=== PATIENT | female | born 1930 | race Two or more races ===

== ENCOUNTER 2016-09-15 13:15 | Emergency (ER) | payer MEDICARE, OTHER ==
[2016-09-15 13:31] VITALS: TEMP 98.2; BMI 31.4
--- NOTE | 2016-09-15 13:45 | PDOC ---
History of Present Illness - General History Source: Patient Exam Limitations: No Limitations - History of Present Illness Initial Comments: 09/15/16 14:30 The patient is an 86 year old female, with significant past medical history HLD , HTN, DM, Diabetic neuropathy, who presents today complaining of 4 days of a sore throat, productive cough with clear sputum, chills, and chest tightness. The patient explains that her symptoms began with a burning throat and intermittent cough. She attempted to visit an urgent care and was told that there would be no doctors until next week. Over the past 3 days the cough has become constant, irritating, and causing chest discomfort.. She has woken up with night sweats and has had chills. 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 She also notes a headache starting this morning. No lightheadedness, dizziness, chest pain. Allergies: none reported PCP- Dr. Hernandez <Joy Sequeira - Last Filed: 09/15/16 14:46> <Isaiah Ventura - Last Filed: 09/15/16 16:55> - General Chief Complaint: Chest Pain Stated Complaint: CHEST PAIN, SOB Time Seen by Provider: 09/15/16 13:44 Past History <Joy Sequeira - Last Filed: 09/15/16 14:46> - Past Medical History Cardiac Disorders: Yes (s/p ablation with loop recorder implantation to [facility]) Diabetes: Yes HTN: Yes Hypercholesterolemia: Yes - Psycho/Social/Smoking Cessation Hx Anxiety: No Suicidal Ideation: No Smoking History: Former smoker Have you smoked in the past 12 months: No If you are a former smoker, when did you quit?: 20yrs Information on smoking cessation initiated: No Hx Alcohol Use: No Drug/Substance Use Hx: No Substance Use Type: None Hx Substance Use Treatment: No <Isaiah Ventura - Last Filed: 09/15/16 16:55> - Past Medical History Allergies/Adverse Reactions: Allergies Allergy/AdvReac Type Severity Reaction Status Date / Time No Known Drug Allergies Allergy Verified 09/15/16 13:31 Home Medications: Ambulatory Orders Atorvastatin Ca [Lipitor] 10 mg PO HS 11/11/14 Glipizide Xl [Glucotrol Xl -] 2.5 mg PO DAILY 11/11/14 Losartan/Hydrochlorothiazide [Losartan-Hctz 50-12.5 mg Tab] 1 each PO DAILY Gabapentin [Neurontin] 100 mg PO BID 09/07/15 Meclizine HCl 25 mg PO DAILY 12/02/15 Hydrocortisone [Proctosol-Hc] 28.35 gm RC HS #0 cream..g. 12/03/15 Montelukast Na [Singulair -] 10 mg PO HS 12/03/15 Tramadol HCl/Acetaminophen [Tramadol-Acetaminophn 37.5-325] 1 each PO BID Levofloxacin [Levaquin] 750 mg PO DAILY #13 tablet 09/15/16 Ondansetron [Zofran *Odt*] 8 mg SL TID #30 od.tablet 09/15/16 Promethazine/Phenyleph/Codeine [Phenergan VC+Codeine Syrup] 5 ml PO TID #150 ml MDD 15 09/15/16 Review of Systems - Review of Systems Able to Perform ROS?: Yes Comments:: 09/15/16 14:31 GENERAL/CONSTITUTIONAL: +chills, night sweats. No fever. No weakness. HEAD, EYES, EARS, NOSE AND THROAT:+sore throat, No change in vision. No ear pain or discharge. CARDIOVASCULAR: No chest pain or shortness of breath. RESPIRATORY: +productive cough, chest tightness. No wheezing, or hemoptysis. GASTROINTESTINAL: No nausea, vomiting, diarrhea or constipation. GENITOURINARY: No dysuria, frequency, or change in urination. MUSCULOSKELETAL: No joint or muscle swelling or pain. No neck or back pain. SKIN: No rash NEUROLOGIC: +headache. No vertigo, loss of consciousness, or change in strength/ sensation. ENDOCRINE: No increased thirst. No abnormal weight change. HEMATOLOGIC/LYMPHATIC: No anemia, easy bleeding, or history of blood clots. ALLERGIC/IMMUNOLOGIC: No hives or skin allergy. <Joy Sequeira - Last Filed: 09/15/16 14:46> *Physical Exam - Vital Signs Last Vital Signs Temp Pulse Resp BP Pulse Ox 98.2 F 87 16 115/67 100 09/15/16 13:22 09/15/16 13:22 09/15/16 13:22 09/15/16 13:22 09/15/16 13:22 - Physical Exam Comments: 09/15/16 14:31 GENERAL: Awake, alert, and fully oriented, in no acute distress HEAD: No signs of trauma EYES: PERRLA, EOMI, sclera anicteric, conjunctiva clear ENT: Auricles normal inspection, hearing grossly normal, nares patent, oropharynx clear without exudates. Moist mucosa NECK: Normal ROM, supple, no lymphadenopathy, JVD, or masses LUNGS: +scattered rhonchi throughout all lung olsen. Hyperresonance of the left lung. No wheezes, and no crackles HEART: Regular rate and rhythm, normal S1 and S2, no murmurs, rubs or gallops ABDOMEN: Soft, nontender, normoactive bowel sounds. No guarding, no rebound. No masses EXTREMITIES: Normal range of motion, no edema. No clubbing or cyanosis. No cords, erythema, or tenderness NEUROLOGICAL: Cranial nerves II through XII grossly intact. Normal speech, normal gait SKIN: Warm, Dry, normal turgor, no rashes or lesions noted. <Joy Sequeira - Last Filed: 09/15/16 14:46> - Vital Signs Last Vital Signs Temp Pulse Resp BP Pulse Ox 98.2 F 87 16 115/67 100 09/15/16 13:22 09/15/16 13:22 09/15/16 13:22 09/15/16 13:22 09/15/16 13:22 <Isaiah Ventura - Last Filed: 09/15/16 16:55> ED Treatment Course - RADIOLOGY Radiograph Interpretation: 09/15/16 14:46 Chest X-ray As reported by Dr. José Miguel Conley Impression: No acute pathology. No significant change since 09/19/15 <Joy Sequeira - Last Filed: 09/15/16 14:46> - LABORATORY CBC & Chemistry Diagram: 09/15/16 15:10 09/15/16 15:10 <Isaiah Ventura - Last Filed: 09/15/16 16:55> *DC/Admit/Observation/Transfer - Attestations Scribe Attestion: 09/15/16 14:31 Documentation prepared by NERIS Paniagua, acting as medical care manager for Isaiah Ventura DO <Joy Sequeira - Last Filed: 09/15/16 14:46> - Discharge Dispostion Admit: No - Attestations Physician Attestion: 09/15/16 13:45 <Isaiah Ventura - Last Filed: 09/15/16 16:55> Diagnosis at time of Disposition: Bronchitis, Sinusitis - Discharge Dispostion Disposition: HOME Condition at time of disposition: Good - Prescriptions Prescriptions: Levofloxacin [Levaquin] 750 mg PO DAILY #13 tablet Promethazine/Phenyleph/Codeine [Phenergan VC+Codeine Syrup] 5 ml PO TID #150 ml MDD 15 Ondansetron [Zofran *Odt*] 8 mg SL TID #30 od.tablet - Referrals Referrals: Cayla Butt MD [Staff Physician] - - Patient Instructions Printed Discharge Instructions: DI for Sinusitis, DI for Acute Bronchitis Additional Instructions: Mrs Mckenzie- You have Sinusitis and Bronchitis. Antibiotic is Levaquin which is once a day for 14 days- start tomorrow Phenergan with Codine is cough syrup. One teaspoon three times a day, only if you need it. Zofran is in case the other meds upset your stomach. Dissolve it on your tongue three times a day, only if you need it. Return to us if worse See your doctor in a few days Hope you feel better soon- Best- Dr. Isaiah Ventura
[2016-09-15] MEDS ORDERED: ALBUTEROL SO4 2.5/IPRATROPIUM 0.5 INH SOL 3 ML VIAL.NEB. NEB ONE ×2 (14:24→14:48)
[2016-09-15] MEDS ORDERED: methylPREDNISolone NA SUCC 125 MG/2 ML VIAL IVPB ONE (14:26)
[2016-09-15] MEDS ORDERED: methylPREDNISolone NA SUCC 125 MG/2 ML VIAL ONE (14:50)
[2016-09-15 15:25] LABS: BASOPHIL 0.9 % (0-2.0); EOSINOPHIL 2.6 % (0-4.5); MCH 30.3 pg (25.7-33.7); MCHC 32.4 g/dl (32.0-36.0); MEAN CELL VOLUME 93.5 fl (80-96); MEAN PLT VOLUME 8.2 fl (7.5-11.1); NEUTROPHILS 68.9 % (42.8-82.8); PLATELET COUNT 203 K/MM3 (134-434); WHITE BLOOD COUNT 8.8 K/mm3 (4.0-10.0)
[2016-09-15 15:38] LABS: ANION GAP 4 (8-16); BILIRUBIN,TOTAL 0.5 mg/dL (0.2-1.0); CALCIUM 8.9 mg/dL (8.5-10.1); CO2 35 mmol/L (21-32); CREATININE 1.1 mg/dL (0.55-1.02); GLUCOSE,RANDOM 116 mg/dL (74-106); SGOT/AST 20 U/L (15-37); SGPT/ALT 32 U/L (12-78); TOT PROT 6.6 g/dl (6.4-8.2)
[2016-09-15 15:40] LABS: ALK PHOS 67 U/L (45-117); TROPONIN I < 0.02 ng/ml (0.00-0.05)
--- NOTE | 2016-09-15 15:49 | EKG ---
Test Reason : Blood Pressure : / mmHG Vent. Rate : 068 BPM Atrial Rate : 068 BPM P-R Int : 222 ms QRS Dur : 066 ms QT Int : 372 ms P-R-T Axes : 030 -02 021 degrees QTc Int : 395 ms SINUS RHYTHM WITH 1ST DEGREE A-V BLOCK NONSPECIFIC T WAVE ABNORMALITY ABNORMAL ECG WHEN COMPARED WITH ECG OF 19-SEP-2015 18:12, NO SIGNIFICANT CHANGE WAS FOUND Confirmed by OMER MULLINS MD ([id number]) on 09/15/2016 3:49:05 PM Referred By: Confirmed By:OMER MULLINS MD
[2016-09-15 16:33] LABS: INR 1.08 (0.82-1.09); PROTHROMBIN TIME (PATIENT) 11.9 SEC (9.98-11.88)
[2016-09-15] MEDS ORDERED: LEVOFLOXACIN 750 MG IVPB 150 ML IVPB ONE ×2 (16:44→17:09)
[2016-09-15] MEDS ORDERED: ACETAMINOPHEN 325 MG TABLET (FP) ONE (17:17)
[2016-09-15] MEDS ORDERED: ACETAMINOPHEN 325 MG TABLET (FP) PO ONE (17:17)
[2016-09-15 18:40] VITALS: BP 116/54; PULSE 75
--- NOTE | 2016-09-16 12:45 | EKG ---
Test Reason : Blood Pressure : / mmHG Vent. Rate : 067 BPM Atrial Rate : 067 BPM P-R Int : 192 ms QRS Dur : 064 ms QT Int : 392 ms P-R-T Axes : 059 -09 003 degrees QTc Int : 414 ms POOR DATA QUALITY, INTERPRETATION MAY BE ADVERSELY AFFECTED NORMAL SINUS RHYTHM MODERATE VOLTAGE CRITERIA FOR LVH, MAY BE NORMAL VARIANT NONSPECIFIC T WAVE ABNORMALITY ABNORMAL ECG WHEN COMPARED WITH ECG OF 15-SEP-2016 13:35, [place] INTERVAL HAS DECREASED Confirmed by MARY IQBAL, YUNIEL ([id number]) on 09/16/2016 12:45:22 PM Referred By: BLAKE Confirmed By:YUNIEL HERNANDEZ MD
== END 2016-09-15 18:40 | disposition home or self-care (01) ==
LOC: JER 13:15
PROC: 3E0F7GC Introduction of Other Therapeutic Substance into Respiratory Tract, Via Natural or Artificial Opening (ICD-10-PCS; principal; 2016-09-15)
PROC: 3E03329 Introduction of Other Anti-infective into Peripheral Vein, Percutaneous Approach (ICD-10-PCS; 2016-09-15)
PROC: 3E0333Z Introduction of Anti-inflammatory into Peripheral Vein, Percutaneous Approach (ICD-10-PCS; 2016-09-15)
DX: J20.9 Acute bronchitis, unspecified (principal); J01.90 Acute sinusitis, unspecified; I10 Essential (primary) hypertension; E78.00 Pure hypercholesterolemia, unspecified; E11.42 Type 2 diabetes mellitus with diabetic polyneuropathy; Z79.84 Long term (current) use of oral hypoglycemic drugs
CPT/HCPCS: 36415; 71010-TC; 80053; 82550; 83880; 84484; 85025; 85610; 93005; 93010; 99283-25

== ENCOUNTER 2017-10-31 10:06 | Emergency (ER) | payer MEDICARE, OTHER ==
[2017-10-31 10:21] VITALS: BMI 31.8
--- NOTE | 2017-10-31 10:22 | PDOC ---
Attending Attestation - Resident Resident Name: Nette Hitchcock - HPI HPI: 10/31/17 12:29 Pt presents to the ED complaining of a two week history of shortness of breath, accompanied by cough productive of whitish sputum. Denies fever, nausea and vomiting or chest pain. Seen by PMD for the same complaint, treated with antibiotic and breathing treatments, without relief. - Physicial Exam PE: 10/31/17 12:35 Agree with resident exam. Patient has mild conversational dyspnea. + diffuse wheezing on exam. Heart regular rate and rhythm, abdomen soft, non tender, non distended. - Medical Decision Making 10/31/17 12:38 Pt presents to the ED complaining of shortness of breath despite an outpatient course of antibiotics prescribed by her PMD. Wheezing and visibly short of breath on exam. No history of asthma or COPD. Differential includes PNA, bronchitis, CHF, unlikely PE or ACS. Will check labs, CXR, treat with bronchodilators and reassess. Likely admission to medicine for continued monitoring and management. 10/31/17 12:53
[2017-10-31] MEDS ORDERED: ALBUTEROL SO4 0.083% IH SOL 2.5 MG/3 ML VIAL.NEB. NEB ONE ×4 (11:13→14:12)
[2017-10-31 12:49] LABS: BASO % 0.5 % (0-2.0); EOS % 1.1 % (0-4.5); HEMATOCRIT 39.7 % (32.4-45.2); HEMOGLOBIN 12.9 GM/dL (10.7-15.3); LYMPH % 24.1 % (8-40); MCH 30.3 pg (25.7-33.7); MCHC 32.6 g/dl (32.0-36.0); MEAN PLT VOLUME 8.3 fl (7.5-11.1); MONO % 8.2 % (3.8-10.2); NEUT % 66.1 % (42.8-82.8); PLATELET COUNT 184 K/MM3 (134-434); RBC 4.27 M/mm3 (3.60-5.2); RDW 14.9 % (11.6-15.6); WHITE BLOOD COUNT 10.1 K/mm3 (4.0-10.0)
--- NOTE | 2017-10-31 13:17 | PDOC ---
History of Present Illness <Elizabeth Villra - Last Filed: 10/31/17 15:05> - General History Source: Patient, Information And Data Architect Analyst Used (Nurse Junior) - History of Present Illness Initial Comments: 10/31/17 13:12 HPI: Patient is an 87 yo female with PMH of HTN, HLD with "monitor on the heart", presenting to ED with complaints of cough and difficulty breathing. Symptoms first started 2 weeks ago when she developed a cold that progressed. Patient states that it is difficult for her to breathe and she is constantly coughing with clear mucus. She states that she coughs so hard that she becomes incontinent. She also noticed that her ankles were looking more swollen than usual. She denies chest pain, abdominal pain, headache, fever, chills, orthopnea. She saw her PCP on Wednesday and was given predisone and albuterol but she did not feel any better. *Patient spoke Gibraltarian only, her assigned nurse Nat was present to translate. Patient's daughter also translated. PMH: As per HPI. PSH: As per HPI. Meds: albuterol, symbicort, prednisone, tordol, losartan, gabapentin, glipizide , atorvastatin, montelukast, ASA Allergies: None Known PCP: Dr. Hernandez 10/31/17 13:21 10/31/17 13:21 10/31/17 14:30 10/31/17 15:35 10/31/17 15:35 10/31/17 16:14 <Nette Hitchcock - Last Filed: 10/31/17 19:04> - General Chief Complaint: Respiratory Stated Complaint: COUGH Time Seen by Provider: 10/31/17 10:21 Past History <Elizabeth Villar - Last Filed: 10/31/17 15:05> - Past Medical History Asthma: Yes Cardiac Disorders: Yes (s/p ablation with loop recorder implantation to [facility]) COPD: No Diabetes: Yes HTN: Yes Hypercholesterolemia: Yes - Suicide/Smoking/Psychosocial Hx Smoking History: Former smoker Have you smoked in the past 12 months: No If you are a former smoker, when did you quit?: 20yrs Information on smoking cessation initiated: No Hx Alcohol Use: No Drug/Substance Use Hx: No Substance Use Type: None Hx Substance Use Treatment: No <Nette Hitchcock - Last Filed: 10/31/17 19:04> - Past Medical History Allergies/Adverse Reactions: Allergies Allergy/AdvReac Type Severity Reaction Status Date / Time No Known Drug Allergies Allergy Verified 09/15/16 13:31 Home Medications: Ambulatory Orders Benzonatate [Tessalon Pearls -] 100 mg PO TID #21 capsule 10/31/17 Levofloxacin [Levaquin] 750 mg PO DAILY 5 Days #5 tablet 10/31/17 Review of Systems - Review of Systems Comments:: 10/31/17 13:21 ROS: Constitutional: No fevers, chills, fatigue, malaise HEENT: Congestion. No Rhinorrhea, visual changes, throat pain Cardiovascular: No chest pain, syncope, palpitations, lightheadedness Respiratory: Cough, SOB. No Hemoptysis, Gastrointestinal: No Abdominal pain, Nausea, Vomiting, Constipation, Diarrhea, Melena Genitourinary: No Dysuria, Frequency, Urgency, Hesitancy, Hematuria, Flank pain Musculoskeletal: No Myalgia, arthralgia Skin: No rashes, itching, bruising, pallor Neurologic: No Headache, Dizziness, Numbness, Weakness, or Tingling <Nette Hitchcock - Last Filed: 10/31/17 19:04> *Physical Exam - Vital Signs Last Vital Signs Temp Pulse Resp BP Pulse Ox 97.9 F 71 20 137/76 97 10/31/17 10:18 10/31/17 10:18 10/31/17 10:18 10/31/17 10:18 10/31/17 10:18 <Elizabeth Villar - Last Filed: 10/31/17 15:05> - Vital Signs Last Vital Signs Temp Pulse Resp BP Pulse Ox 97.9 F 71 20 137/76 97 10/31/17 10:18 10/31/17 10:18 10/31/17 10:18 10/31/17 10:18 10/31/17 10:18 - Physical Exam Comments: Physical Exam: General Appearance: Nourished. No Apparent Distress, had mask on face HEENT: EOMI, KARO. No Pharyngeal Erythema, Tonsillar Exudate, Tonsillar Erythema Neck: No Cervical Lymphadenopathy Respiratory/Chest: Inspiratory and expiratory wheezes Cardiovascular: Regular Rhythm, Regular Rate. No JVD, Murmur, Gallops, Rubs Gastrointestinal/Abdominal: Normal Bowel Sounds, Soft. No Guarding, Rebound, Tenderness Musculoskeletal: No CVA Tenderness Extremity: Bilateral pitting edema to mid calf. Normal Capillary Refill Integumentary: Normal Color, Dry, Warm Neurologic: spanish moss picker II-XII NML intact, Fully Oriented, Alert, Normal Mood/Affect, Normal Response 10/31/17 13:22 <Nette Hitchcock - Last Filed: 10/31/17 19:04> ED Treatment Course - LABORATORY CBC & Chemistry Diagram: 10/31/17 12:33 10/31/17 12:33 - ADDITIONAL ORDERS Additional order review: Laboratory Results 10/31/17 12:33 Sodium 146 H Potassium 4.4 Chloride 108 H Carbon Dioxide 34 H Anion Gap 4 L BUN 33 H Creatinine 1.0 Creat Clearance w eGFR 52.69 Random Glucose 69 L Calcium 8.5 Total Bilirubin 0.2 AST 28 ALT 25 Alkaline Phosphatase 68 B-Natriuretic Peptide 617.43 H Total Protein 6.7 Albumin 3.0 L 10/31/17 12:33 RBC 4.27 MCV 93.0 MCHC 32.6 RDW 14.9 MPV 8.3 Neutrophils % 66.1 Lymphocytes % 24.1 D Monocytes % 8.2 Eosinophils % 1.1 Basophils % 0.5 - Medications Given in the ED: ED Medications Discontinued Medications Generic Name Dose Route Start Last Admin Trade Name Nohemy PRN Reason Stop Dose Admin Albuterol Sulfate 1 amp 10/31/17 11:13 10/31/17 12:34 Ventolin 0.083% Nebulizer Soln - NEB 10/31/17 11:14 1 amp ONCE ONE Administration Albuterol Sulfate 1 amp 10/31/17 14:08 10/31/17 14:14 Ventolin 0.083% Nebulizer Soln - NEB 10/31/17 14:09 1 amp ONCE ONE Administration Levofloxacin 750 mg in 150 mls @ 100 mls/hr 10/31/17 11:13 10/31/17 12:34 Levaquin 750 Mg Premixed Ivpb - IVPB 10/31/17 12:42 100 mls/hr ONCE ONE Administration Protocol - Consult/PCP Time Called: 15:05 (paged MECHATRONICS TECHNOLOGIST Ramana Oscar) <Elizabeth Villar - Last Filed: 10/31/17 15:05> - LABORATORY CBC & Chemistry Diagram: 10/31/17 12:33 10/31/17 12:33 - ADDITIONAL ORDERS Additional order review: 10/31/17 12:33 RBC 4.27 MCV 93.0 MCHC 32.6 RDW 14.9 MPV 8.3 Neutrophils % 66.1 Lymphocytes % 24.1 D Monocytes % 8.2 Eosinophils % 1.1 Basophils % 0.5 10/31/17 13:23 ECG:NSR with 1st degree AV block 10/31/17 16:14 - RADIOLOGY Radiology Studies Ordered: Category Date Time Status CHEST PA & LAT [RAD] Stat Radiology 10/31/17 11:13 Ordered 10/31/17 16:15 CXR: clear lungs, no acute pathology - Medications Given in the ED: ED Medications Discontinued Medications Generic Name Dose Route Start Last Admin Trade Name Nohemy PRN Reason Stop Dose Admin Albuterol Sulfate 1 amp 10/31/17 11:13 10/31/17 12:34 Ventolin 0.083% Nebulizer Soln - NEB 10/31/17 11:14 1 amp ONCE ONE Administration Levofloxacin 750 mg in 150 mls @ 100 mls/hr 10/31/17 11:13 10/31/17 12:34 Levaquin 750 Mg Premixed Ivpb - IVPB 10/31/17 12:42 100 mls/hr ONCE ONE Administration Protocol <Nette Hitchcock - Last Filed: 10/31/17 19:04> Medical Decision Making - Medical Decision Making 10/31/17 16:15 Patient is a 87 year old female with PMH of HTN, HLD presents to ED with cough productive of clear sputum and shortness of breath. Patient had cold like symptoms for 2 weeks prior to presentation. She saw her PCP on Wednesday and was given prednisone and albuterol. She admits to cough, SOB, swelling of the legs, but denies chest pain, headache, abdominal pain, N/V/D, urinary symptoms. On physical exam, patient had inspiratory and expiratory wheezes, edema of legs up to the knees bilaterally. Initial ED vitals were wnl. CXR showed clear lungs with no acute pathology. CBC , CMP were wnl, troponin was negative. BNP was 617. Patient was given 2 treatments with nebulizer and reported being able to breathe much better. Upon reevaluation, patient still had expiratory wheezes. Dr. Hernandez was called and ANDI Oscar advised patient to make an appointment with Dr. Hernandez. Patient had alleviation of symptoms and vital signs were wnl. Patient was discharged home on Levaquin 750mg x5 days and Tessalon Perle 100mg #21. 10/31/17 18:58 10/31/17 18:59 10/31/17 19:01 <Nette Hitchcock - Last Filed: 10/31/17 19:04> *DC/Admit/Observation/Transfer <AureaElizabeth - Last Filed: 10/31/17 15:05> <Nette Hitchcock - Last Filed: 10/31/17 19:04> Diagnosis at time of Disposition: Lower respiratory infection, Cough - Discharge Dispostion Disposition: HOME Condition at time of disposition: Good - Prescriptions Prescriptions: Benzonatate [Tessalon Pearls -] 100 mg PO TID #21 capsule Levofloxacin [Levaquin] 750 mg PO DAILY 5 Days #5 tablet - Referrals Referrals: Ashlyn Hernandez MD [Primary Care Provider] - - Patient Instructions Printed Discharge Instructions: Cough, DI for Pneumonia -- Adult, DI for Acute Bronchitis Additional Instructions: You were seen today for Cough and difficulty breathing. We ordered a chest xray and blood tests to make sure you were not having any infection. The chest xray and blood work did not show an infection. We gave you antibiotics and breathing treatments in the emergency room. Your doctor gave you prednisone and albuterol , please continue to take those. I have given you a prescription for an antibiotic and a cough medicine, it was sent to [facility] on [facility]. Antibiotic- Levaquin 750mg take 1 tablet once a day for 5 days Cough medicine- Tessalon Perle- take 1 capsule three times a day Please schedule an appointment with Dr. Hernandez for Wednesday or Wednesday. If you start to develop fever, if your cough gets worse, if it becomes hard for you to breathe then please come back to the ED. Thank you - Post Discharge Activity
[2017-10-31 13:38] LABS: ANION GAP 4 (8-16); BILIRUBIN,TOTAL 0.2 mg/dL (0.2-1.0); BLOOD UREA NITROGEN 33 mg/dL (7-18); CALCIUM 8.5 mg/dL (8.5-10.1); CHLORIDE 108 mmol/L (98-107); CO2 34 mmol/L (21-32); GLUCOSE,RANDOM 69 mg/dL (74-106); SGPT/ALT 25 U/L (12-78); SODIUM 146 mmol/L (136-145); TOT PROT 6.7 g/dl (6.4-8.2)
[2017-10-31 13:40] LABS: ALK PHOS 68 U/L (45-117); N-TERMINAL BNP 617.43 pg/ml (5-450); POTASSIUM 4.4 mmol/L (3.5-5.1)
[2017-10-31 13:41] LABS: SGOT/AST 28 U/L (15-37)
[2017-10-31 16:50] VITALS: BP 129/69; PULSE 69; TEMP 98.7
--- NOTE | 2017-11-01 09:10 | EKG ---
Test Reason : Blood Pressure : / mmHG Vent. Rate : 060 BPM Atrial Rate : 060 BPM P-R Int : 318 ms QRS Dur : 074 ms QT Int : 410 ms P-R-T Axes : 069 -06 025 degrees QTc Int : 410 ms SINUS RHYTHM WITH 1ST DEGREE A-V BLOCK MINIMAL VOLTAGE CRITERIA FOR LVH, MAY BE NORMAL VARIANT NONSPECIFIC T WAVE ABNORMALITY BORDERLINE ECG WHEN COMPARED WITH ECG OF 15-SEP-2016 15:26, [place] INTERVAL HAS INCREASED Confirmed by UMBERTO KELLOGG MD ([id number]) on 11/01/2017 9:10:25 AM Referred By: Confirmed By:UMBERTO KELLOGG MD
== END 2017-10-31 16:53 | disposition home or self-care (01) ==
LOC: JER 10:06
PROC: 3E0F7GC Introduction of Other Therapeutic Substance into Respiratory Tract, Via Natural or Artificial Opening (ICD-10-PCS; principal; 2017-10-31)
PROC: 3E03329 Introduction of Other Anti-infective into Peripheral Vein, Percutaneous Approach (ICD-10-PCS; 2017-10-31)
DX: J22 Unspecified acute lower respiratory infection (principal); I10 Essential (primary) hypertension; E11.9 Type 2 diabetes mellitus without complications; Z79.84 Long term (current) use of oral hypoglycemic drugs; E78.00 Pure hypercholesterolemia, unspecified; Z87.891 Personal history of nicotine dependence; Z95.818 Presence of other cardiac implants and grafts
CPT/HCPCS: 36415; 71046-TC-FY; 80053; 83880; 85025; 93005; 93010; 94640; 96365; 99283-25

== ENCOUNTER 2019-02-06 16:33 | Emergency (ER) | payer OTHER ==
[2019-02-06 16:44] VITALS: BMI 32.2
--- NOTE | 2019-02-06 16:44 | PDOC ---
Rapid Medical Evaluation Chief Complaint: Pain Time Seen by Provider: 02/06/19 16:42 Medical Evaluation: Allergies Allergy/AdvReac Type Severity Reaction Status Date / Time No Known Drug Allergies Allergy Verified 09/15/16 13:31 02/06/19 16:42 I have performed a brief in-person evaluation of this patient. The patient presents with a chief complaint of: epigastric abdominal pain and nausea for 3 weeks. Pain radiates to the back. No h/o pancreatitis. no h/o cholecystitis. No chest pain, no SOB I have ordered the following: EKG, CBC, CMP, lipase, cardiac enzymes, RUQ sono The patient will proceed to the ED for further evaluation. Discharge Disposition - Diagnosis Abdominal pain - Referrals - Patient Instructions - Post Discharge Activity
[2019-02-06 17:52] LABS: URINE APPEARANCE CLEAR; URINE BILIRUBIN NEGATIVE (NEGATIVE); URINE COLOR YELLOW; URINE GLUCOSE (UA) NEGATIVE (NEGATIVE); URINE KETONE NEGATIVE (NEGATIVE); URINE LEUK ESTERASE NEGATIVE (NEGATIVE); URINE NITRITE NEGATIVE (NEGATIVE); URINE PROTEIN NEGATIVE (NEGATIVE); URINE UROBILINOGEN 0.2 mg/dL (0.2-1.0)
[2019-02-06 17:58] LABS: BASO % 0.9 % (0-2.0); EOS % 5.4 % (0-4.5); HEMATOCRIT 40.1 % (32.4-45.2); HEMOGLOBIN 12.9 GM/dL (10.7-15.3); LYMPH % 19.6 % (8-40); MCH 31.1 pg (25.7-33.7); MCHC 32.2 g/dl (32.0-36.0); MEAN CELL VOLUME 96.6 fl (80-96); MEAN PLT VOLUME 8.5 fl (7.5-11.1); MONO % 9.7 % (3.8-10.2); NEUT % 64.4 % (42.8-82.8); PLATELET COUNT 204 K/MM3 (134-434); RBC 4.15 M/mm3 (3.60-5.2); RDW 13.1 % (11.6-15.6); WHITE BLOOD COUNT 7.1 K/mm3 (4.0-10.0)
[2019-02-06] MEDS ORDERED: FAMOTIDINE 20 MG/50 ML IVPB 20 MG/50 ML MG IVPB ONE ×2 (18:08→18:25)
[2019-02-06] MEDS ORDERED: MAG HYDROX/AL HYDROX/SIMETH -MYLANTA- ORAL SUSPENSION PO ONE (18:08)
--- NOTE | 2019-02-06 18:16 | PDOC ---
History of Present Illness - General Chief Complaint: Pain Stated Complaint: ABDOMINAL PAIN Time Seen by Provider: 02/06/19 16:42 History Source: Patient Exam Limitations: No Limitations - History of Present Illness Initial Comments: 02/06/19 18:10 Clarissa Mckenzie is a 88yF w PMHx HTN, HLD, ACS s/p 2 stents, arrythmia, GERD, OA presenting w epigastric pain. Progressively worsening constant epigastric pain radiating bilaterally L/R back. Pain worse w eating. Took omeprazole without relief. Has daily small bowel movements, last one yesterday. Denies fever, cough , nausea/vomiting, SOB, chest pain, urinary/bowel movement changes. Past History - Past Medical History Allergies/Adverse Reactions: Allergies Allergy/AdvReac Type Severity Reaction Status Date / Time No Known Drug Allergies Allergy Verified 02/06/19 16:44 Home Medications: Ambulatory Orders Amlodipine/Atorvastatin [Amlodipine-Atorvast 5-40 mg] 1 tab PO DAILY 02/06/19 Atorvastatin Ca [Lipitor] 10 mg PO HS 02/06/19 Chlorthalidone 50 mg PO DAILY 02/06/19 Famotidine [Pepcid] 20 mg PO BID 7 Days #14 tablet 02/06/19 Gabapentin 400 mg PO BID 02/06/19 Glipizide [Glipizide Xl] 2.5 mg PO DAILY 02/06/19 Mag Hydrox/Al Hydrox/Simeth [Mylanta Suspension -] 30 ml PO BID #1 bottle Meclizine HCl 25 mg PO BID 02/06/19 Omeprazole 40 mg PO ONCE 02/06/19 Asthma: Yes Cardiac Disorders: Yes (s/p ablation with loop recorder implantation to W) COPD: No Diabetes: Yes HTN: Yes Hypercholesterolemia: Yes - Surgical History Abdominal Surgery: Yes () - Immunization History Immunization Up to Date: Yes - Psycho Social/Smoking Cessation Hx Smoking History: Never smoked Have you smoked in the past 12 months: No If you are a former smoker, when did you quit?: 20yrs Information on smoking cessation initiated: No Hx Alcohol Use: No Drug/Substance Use Hx: No Substance Use Type: None Hx Substance Use Treatment: No Review of Systems - Review of Systems Constitutional: No: Chills, Fever HEENTM: No: Eye Pain, Nose Pain, Throat Pain, Mouth Pain Respiratory: No: Cough, Shortness of Breath Cardiac (ROS): No: Chest Pain, Palpitations, Syncope ABD/GI: Yes: Poor Appetite. No: Abdominal Distended, Constipated, Diarrhea, Nausea, Vomiting : No: Burning, Dysuria, Frequency, Flank Pain Musculoskeletal: No: Back Pain, Joint Pain, Muscle Pain Integumentary: No: Bruising, Dryness, Erythema Neurological: No: Headache, Seizure, Tingling, Tremors Psychiatric: No: Anxiety, Depression, Stressors Endocrine: No: Excessive Sweating, Flushing, Intolerance to Cold, Intolerance to Heat Hematologic/Lymphatic: No: Anemia, Blood Clots *Physical Exam - Vital Signs Last Vital Signs Temp Pulse Resp BP Pulse Ox 98.2 F 71 16 125/62 97 02/06/19 16:39 02/06/19 16:39 02/06/19 16:39 02/06/19 16:39 02/06/19 16:39 - Physical Exam General Appearance: Yes: Nourished, Appropriately Dressed, Mild Distress HEENT: positive: EOMI, KARO, Normal Voice, Hearing Grossly Normal. negative: Scleral Icterus (R), Scleral Icterus (L), Nasal Congestion, Rhinorrhea Respiratory/Chest: positive: Lungs Clear, Normal Breath Sounds. negative: Chest Tender, Respiratory Distress, Crackles, Rales, Rhonchi, Stridor, Wheezing Cardiovascular: positive: Regular Rhythm, Regular Rate, S1, S2. negative: Edema , Murmur Gastrointestinal/Abdominal: positive: Normal Bowel Sounds, Tender (mild tender epigatric), Flat, Soft. negative: Organomegaly Musculoskeletal: negative: CVA Tenderness (R), CVA Tenderness (L) Integumentary: positive: Normal Color Neurologic: positive: Fully Oriented, Alert, Normal Response, Responsive. negative: Numbness, Confused, Disoriented ED Treatment Course - LABORATORY CBC & Chemistry Diagram: 02/06/19 17:35 02/06/19 17:35 - ADDITIONAL ORDERS Additional order review: Laboratory Results 02/06/19 02/06/19 18:07 17:30 POC Glucometer 83 Urine Color Yellow Urine Appearance Clear Urine pH 8.0 D Ur Specific [place] 1.016 Urine Protein Negative Urine Glucose (UA) Negative Urine Ketones Negative Urine Blood Negative Urine Nitrite Negative Urine Bilirubin Negative Urine Urobilinogen 0.2 Ur Leukocyte Esterase Negative 02/06/19 02/06/19 18:07 17:35 RBC 4.15 MCV 96.6 H MCHC 32.2 RDW 13.1 D MPV 8.5 Neutrophils % 64.4 Lymphocytes % 19.6 Monocytes % 9.7 Eosinophils % 5.4 H D Basophils % 0.9 POC Glucometer 83 Medical Decision Making - Medical Decision Making 02/06/19 18:15 CBC CMP trop lipase EKG CXR pepcid, maalox for pain EKG shows sinus bradycardia w 1st degree block, HR 51, QTc 379, unchanged inverted T waves V1-2 CXR shows sclerotic aorta, clear lungs CBC, CMP, UA, lipase normal, trop neg US showed cholelithasis, unchanged CBD mildly dilated 0.9cm, slightly dilated 0.4cm main pancreatic duct w several subcm body cysts. No evidence of cholecystitis --- Clarissa Mckenzie is a 88yF w PMHx HTN, HLD, ACS s/p 2 stents, arrythmia, GERD, OA presenting w 3w epigastric pain likely d/t reflux. US showed cholelithasis, unchanged mildly dilated CBD 0.9cm, slightly dilated 0.4cm main pancreatic duct w several subcm body cysts. No evidence of ACS (neg trop, unchanged EKG) or pancreatitis (normal lipase) or UTI or PNA on CXR. Low concern for SBO (non distended) vs AAA (not hypertensive). Pepcid, maalox relieved pain. D/c home w PCP/GI f/u, pepcid, maalox prescription Discharge - Discharge Information Problems reviewed: Yes Clinical Impression/Diagnosis: Abdominal pain Qualifiers: Abdominal location: epigastric Qualified Code(s): R10.13 - Epigastric pain Cholelithiasis Qualifiers: Cholelithiasis location: gallbladder Cholecystitis presence: without cholecystitis Biliary obstruction: without biliary obstruction Qualified Code(s) : K80.20 - Calculus of gallbladder without cholecystitis without obstruction Condition: Improved Disposition: HOME - Admission No - Additional Discharge Information Prescriptions: Famotidine [Pepcid] 20 mg PO BID 7 Days #14 tablet Mag Hydrox/Al Hydrox/Simeth [Mylanta Suspension -] 30 ml PO BID #1 bottle - Follow up/Referral Referrals: Yoly Chandra MD [Primary Care Provider] - - Patient Discharge Instructions Patient Printed Discharge Instructions: DI for Gallstones, DI for Gastroesophageal Reflux Disease (GERD) Additional Instructions: You were seen for abdominal pain. Your labs do not show anything concerning. Your ultrasound showed that you have gallstones. You were given medication for your pain. Please follow up with your primary care doctor regarding this visit and the ultrasound results. Take the prescribed pepcid and maalox as directed on the packaging if you continue to have pain. Avoid eating fatty or fried foods Come back to the ED if you have worsening pain, trouble breathing, or vomiting. - Post Discharge Activity
[2019-02-06] MEDS ORDERED: MAG HYDROX/AL HYDROX/SIMETH 30 ML UNIT-DOSE CUP ONE (18:23)
[2019-02-06 18:27] LABS: ALBUMIN 3.4 g/dl (3.4-5.0); BILIRUBIN,TOTAL 0.5 mg/dL (0.2-1); CALCIUM 9.1 mg/dL (8.5-10.1); CREATININE 1.1 mg/dL (0.55-1.3); POTASSIUM 3.9 mmol/L (3.5-5.1); TOT PROT 6.7 g/dl (6.4-8.2)
[2019-02-06 18:37] LABS: MAGNESIUM 1.8 mg/dL (1.8-2.4); PHOSPHOROUS 2.3 mg/dL (2.5-4.9)
--- NOTE | 2019-02-06 19:09 | PDOC ---
Documentation entered by Linda Tanner SCRIBE, acting as scribe for Julia Berry MD. Julia Berry MD: This documentation has been prepared by the wanderibe, Linda Tanner SCRIBE, under my direction and personally reviewed by me in its entirety. I confirm that the documentation accurately reflects all work, treatment, procedures, and medical decision making performed by me. Attending Attestation - Resident Resident Name: Cezar Elizalde - ED Attending Attestation I have performed the following: I have examined & evaluated the patient, The case was reviewed & discussed with the resident, I agree w/resident's findings & plan, Exceptions are as noted - HPI HPI: 02/06/19 18:58 The patient is an 88 year old female with a past medical history significant for HTN, HLD, ACS s/p 2 stents who presents to the emergency department with epigastric pain. The patient presents with 3 weeks of constant, epigastric pain that radiates to the back. The patient reports the pain is aggravated with eating, no relief noted with omeprazole. - Physicial Exam PE: 02/06/19 20:20 88 yo female in no acute distress heaad ncat neck supple lungs cta b/l cvs [id number] abd no rebound no guarding skin warm and dry extremities no edema neuro axox3 - Medical Decision Making 02/06/19 19:02 pt's c/o epigstric pain radiating to her back cbc and chemistries reviewed neg trop no ekg changes from her prior 2018 ekg. she still has a first degree AV block 02/06/19 20:23 labs unremarkable she has an appt with Dr Beck this week
[2019-02-06 21:10] VITALS: BP 128/68; PULSE 70; TEMP 98.4
--- NOTE | 2019-02-07 12:52 | EKG ---
Test Reason : Blood Pressure : / mmHG Vent. Rate : 051 BPM Atrial Rate : 056 BPM P-R Int : 392 ms QRS Dur : 074 ms QT Int : 412 ms P-R-T Axes : 035 004 029 degrees QTc Int : 379 ms SINUS BRADYCARDIA WITH SINUS ARRHYTHMIA WITH 1ST DEGREE A-V BLOCK NONSPECIFIC T WAVE ABNORMALITY ABNORMAL ECG WHEN COMPARED WITH ECG OF 31-OCT-2017 14:06, NO SIGNIFICANT CHANGE WAS FOUND Confirmed by Enmanuel Salmon MD ([id number]) on 02/07/2019 12:52:02 PM Referred By: Confirmed By:Enmanuel Salmon MD
== END 2019-02-06 21:10 | disposition home or self-care (01) ==
LOC: JER 16:33
PROC: 3E033GC Introduction of Other Therapeutic Substance into Peripheral Vein, Percutaneous Approach (ICD-10-PCS; principal; 2019-02-06)
DX: K80.20 Calculus of gallbladder without cholecystitis without obstruction (principal); I25.10 Atherosclerotic heart disease of native coronary artery without angina pectoris; I10 Essential (primary) hypertension; Z95.5 Presence of coronary angioplasty implant and graft; I49.9 Cardiac arrhythmia, unspecified; E11.9 Type 2 diabetes mellitus without complications; Z79.84 Long term (current) use of oral hypoglycemic drugs; E78.5 Hyperlipidemia, unspecified; E78.00 Pure hypercholesterolemia, unspecified; K21.9 Gastro-esophageal reflux disease without esophagitis; Z95.818 Presence of other cardiac implants and grafts
CPT/HCPCS: 36415; 71045-TC-FY; 76705-TC; 80053; 81003; 82550; 82962; 83690; 83735; 84100; 84484; 85025; 87086; 93005; 93010; 96365; 99284-25

== ENCOUNTER 2020-05-14 02:18 | Inpatient (IN) | payer OTHER ==
[2020-05-14] MEDS ORDERED: SODIUM BICARBONATE 8.4% - 50 ML ONE (02:29)
[2020-05-14] MEDS ORDERED: EPINEPHrine 1:10,000 (P-F SYR) 1 MG/10 ML DISP.SYRIN ONE (02:29)
[2020-05-14] MEDS ORDERED: DEXAMETHASONE SOD PHOSPHATE 10 MG/1 ML VIAL IVPUSH ONE (02:31)
[2020-05-14] MEDS: MIDAZOLAM 100 MG in SODIUM CHLORIDE 100 ML IVPB SCH (02:40)
[2020-05-14 03:03] LABS: BASO % 0.3 % (0-2.0); EOS % 0.1 % (0-4.5); HEMATOCRIT 42.6 % (32.4-45.2); HEMOGLOBIN 12.8 GM/dL (10.7-15.3); LYMPH % 26.2 % (8-40); MCH 30.9 pg (25.7-33.7); MEAN PLT VOLUME 9.5 fl (7.5-11.1); MONO % 6.1 % (3.8-10.2); NEUT % 67.3 % (42.8-82.8); PLATELET COUNT 201 K/MM3 (134-434); RBC 4.14 M/mm3 (3.60-5.2); RDW 14.9 % (11.6-15.6); WHITE BLOOD COUNT 11.8 K/mm3 (4.0-10.0)
[2020-05-14 03:11] LABS: INR 1.13 (0.83-1.09); PROTHROMBIN TIME (PATIENT) 13.9 SEC (9.7-13.0)
[2020-05-14 03:13] LABS: VENOUS BASE EXCESS -21.8 mmol/L (-2-2); VENOUS O2 SATURATION 26.6 % (70-80); VENOUS PH 6.783 (7.310-7.410)
[2020-05-14 03:14] LABS: ACTIVATED PTT 31.5 SECONDS (25.2-36.5)
[2020-05-14 03:17] LABS: VENOUS PCO2 105.3 mmHg (38-52)
[2020-05-14] MEDS ORDERED: DEXAMETHASONE SOD PHOSPHATE 4 MG/1 ML VIAL ONE (03:20)
[2020-05-14] MEDS ORDERED: SODIUM BICARBONATE 8.4% 50 MEQ/50 ML DISP.SYRIN IVPUSH ONE (03:20)
[2020-05-14] MEDS ORDERED: SODIUM BICARBONATE 8.4% 50 MEQ/50 ML VIAL ONE (03:23)
[2020-05-14 03:27] LABS: POTASSIUM 4.1 mmol/L (3.5-5.1)
[2020-05-14 03:29] LABS: ALBUMIN 2.1 g/dl (3.4-5.0)
[2020-05-14 03:33] LABS: BILIRUBIN,DIRECT 0.1 mg/dL (0.0-0.2); CREATININE 2.3 mg/dL (0.55-1.3)
[2020-05-14 03:34] LABS: BILIRUBIN,TOTAL 0.2 mg/dL (0.2-1); TOT PROT 5.9 g/dl (6.4-8.2)
[2020-05-14] MEDS: NOREPINEPHRINE BITARTRATE 4,000 MCG in DEXTROSE 5%-WATER - 496 ML IV SCH (03:35)
[2020-05-14 03:37] LABS: EPI CELLS >36 /uL (0-25.1); HYALINE CASTS 84 /uL (0-3.1); URINE APPEARANCE TURBID; URINE BILIRUBIN NEGATIVE (NEGATIVE); URINE COLOR DK YELLOW; URINE GLUCOSE (UA) NEGATIVE (NEGATIVE); URINE KETONE TRACE (NEGATIVE); URINE LEUK ESTERASE NEGATIVE (NEGATIVE); URINE NITRITE NEGATIVE (NEGATIVE); URINE PROTEIN 1+ (NEGATIVE); URINE RBC 12 /uL (0-23.9); URINE WBC 52 /uL (0-25.8)
[2020-05-14 03:53] LABS: ANISOCYTOSIS 1+; MACROCYTOSIS 1+; PLATELET ESTIMATE NORMAL
[2020-05-14 03:55] LABS: ARTERIAL BLD GAS O2 SATURATION 97.7 mmHg (95-98); ARTERIAL BLOOD GAS BASE EXCESS -11.2 mmol/L (-2-2); ARTERIAL BLOOD GAS PO2 116.2 mmHg (80-100)
[2020-05-14] MEDS ORDERED: SODIUM CHLORIDE 1,000 ML IV STA (04:11)
[2020-05-14 04:14] LABS: URINE CRYSTALS PRESENT /hpf
[2020-05-14 04:15] LABS: URINE BACTERIA 17 /uL (0-1359)
[2020-05-14 04:19] LABS: ALLENS TEST POSITIVE
[2020-05-14 04:20] LABS: VENT MODE A/C
[2020-05-14 04:21] LABS: VENT RATE 24
[2020-05-14] MEDS ORDERED: LACTATED RINGERS SOLUTION 1000 ML INFUS.BAG IV ONE (04:25)
[2020-05-14 05:27] LABS: ARTERIAL BLD GAS O2 SATURATION 83.5 mmHg (95-98); ARTERIAL BLOOD GAS PO2 55.6 mmHg (80-100)
[2020-05-14 05:28] LABS: ALLENS TEST POSITIVE
[2020-05-14 05:29] LABS: VENT RATE 24
[2020-05-14 06:14] LABS: BLOOD UREA NITROGEN 34.6 mg/dL (7-18)
[2020-05-14] MEDS ORDERED: LORazepam 2 MG/ML SDV VIAL IVPUSH ONE ×2 (07:00→07:38)
[2020-05-14] MEDS ORDERED: DOPAMINE 400 MG/D5W - 400,000 MCG/250 ML INFUS.BAG IVPB SCH (07:00)
[2020-05-14] MEDS ORDERED: VECURONIUM BROMIDE 50 MG/50 ML VIAL IVPUSH ONE (07:26)
[2020-05-14] MEDS: LACTATED RINGERS SOLUTION 1,000 ML/1,000 ML INFUS.BAG IV SCH (08:27)
[2020-05-14] MEDS: levETIRAcetam 500 MG/5 ML INJECTION VIAL IVPB SCH ×2 (08:28→22:57)
[2020-05-14] MEDS: PROPOFOL 1,000,000 MCG/100 ML VIAL IVPB SCH (08:30)
[2020-05-14] MEDS ORDERED: VECURONIUM BROMIDE 10 MG/10 ML VIAL ONE (08:52)
[2020-05-14] MEDS: VECURONIUM BROMIDE 100 MG/100 ML BAG IVPB SCH (09:02)
[2020-05-14] MEDS ORDERED: VASOPRESSIN 20 UNITS/ML VIAL IV ONE ×2 (09:09→18:29)
[2020-05-14] MEDS: VASOPRESSIN 40 UNITS in SODIUM CHLORIDE 98 ML IVPB SCH (09:20)
[2020-05-14] MEDS: ENOXAPARIN NA (PORCINE) 100 MG/1 ML DISP.SYRIN SQ SCH (09:48)
[2020-05-14] MEDS: MUPIROCIN 2% TOPICAL OINTMENT FOR DECOLONIZATION NS SCH ×2 (09:49→22:57)
[2020-05-14] MEDS: PANTOPRAZOLE SODIUM 40 MG VIAL IVPUSH SCH (09:49)
[2020-05-14] MEDS: DEXAMETHASONE SOD PHOSPHATE 4 MG/1 ML VIAL IVPUSH SCH (09:49)
[2020-05-14 12:04] LABS: BASO % 0.1 % (0-2.0); EOS % 0.4 % (0-4.5); HEMATOCRIT 38.6 % (32.4-45.2); HEMOGLOBIN 12.3 GM/dL (10.7-15.3); LYMPH % 2.6 % (8-40); MCH 31.1 pg (25.7-33.7); MEAN CELL VOLUME 97.2 fl (80-96); MEAN PLT VOLUME 9.3 fl (7.5-11.1); MONO % 2.1 % (3.8-10.2); NEUT % 94.8 % (42.8-82.8); PLATELET COUNT 181 K/MM3 (134-434); RBC 3.97 M/mm3 (3.60-5.2); RDW 13.6 % (11.6-15.6); WHITE BLOOD COUNT 15.4 K/mm3 (4.0-10.0)
[2020-05-14 12:16] LABS: INR 1.43 (0.83-1.09); PROTHROMBIN TIME (PATIENT) 17.1 SEC (9.7-13.0)
[2020-05-14 12:19] LABS: ACTIVATED PTT 33.2 SECONDS (25.2-36.5)
[2020-05-14 12:46] LABS: BLOOD UREA NITROGEN 37.1 mg/dL (7-18); CALCIUM 7.2 mg/dL (8.5-10.1)
[2020-05-14 12:47] LABS: MAGNESIUM 1.9 mg/dL (1.8-2.4)
[2020-05-14 12:49] LABS: CREATININE 2.5 mg/dL (0.55-1.3); PHOSPHOROUS 4.4 mg/dL (2.5-4.9)
[2020-05-14 12:51] LABS: BILIRUBIN,TOTAL 0.7 mg/dL (0.2-1); TOT PROT 5.3 g/dl (6.4-8.2)
[2020-05-14 14:05] LABS: ANISOCYTOSIS 1+; MACROCYTOSIS 1+; PLATELET ESTIMATE NORMAL
[2020-05-14] MEDS ORDERED: MIDAZOLAM 100 MG/100 ML MG IVPB ONE (18:29)
[2020-05-14] MEDS: CHLORHEXIDINE GLUCONATE 4% CLEANSER FOR DECOLONIZATION TP SCH (22:57)
[2020-05-15] MEDS: NOREPINEPHRINE BITARTRATE 4,000 MCG in DEXTROSE 5%-WATER - 496 ML IV SCH ×3 (02:29→21:42)
[2020-05-15 06:06] LABS: ARTERIAL BLD GAS O2 SATURATION 96.3 mmHg (95-98); ARTERIAL BLOOD GAS BASE EXCESS -1.7 mmol/L (-2-2); ARTERIAL BLOOD GAS PO2 78.7 mmHg (80-100); ARTERIAL BLOOD GAS pH 7.458 (7.350-7.450)
[2020-05-15 06:07] LABS: VENT MODE A/C; VENT RATE 24
[2020-05-15] MEDS ORDERED: INSULIN SLIDING SCALE (NOVOLOG) 1 VIAL SQ SCH (07:00)
[2020-05-15 07:11] LABS: BASO % 0.1 % (0-2.0); EOS % 1.2 % (0-4.5); HEMATOCRIT 39.3 % (32.4-45.2); HEMOGLOBIN 12.9 GM/dL (10.7-15.3); LYMPH % 4.7 % (8-40); MCH 31.2 pg (25.7-33.7); MCHC 32.8 g/dl (32.0-36.0); MEAN PLT VOLUME 9.5 fl (7.5-11.1); MONO % 0.9 % (3.8-10.2); NEUT % 93.1 % (42.8-82.8); PLATELET COUNT 165 K/MM3 (134-434); RBC 4.14 M/mm3 (3.60-5.2); RDW 13.8 % (11.6-15.6); WHITE BLOOD COUNT 18.9 K/mm3 (4.0-10.0)
[2020-05-15 07:34] LABS: POTASSIUM 3.3 mmol/L (3.5-5.1)
[2020-05-15 07:45] LABS: CALCIUM 7.2 mg/dL (8.5-10.1)
[2020-05-15 07:46] LABS: ALBUMIN 1.8 g/dl (3.4-5.0); BLOOD UREA NITROGEN 43.7 mg/dL (7-18); MAGNESIUM 1.6 mg/dL (1.8-2.4)
[2020-05-15 07:49] LABS: BILIRUBIN,TOTAL 0.6 mg/dL (0.2-1); CREATININE 2.7 mg/dL (0.55-1.3); PHOSPHOROUS 3.2 mg/dL (2.5-4.9)
[2020-05-15 07:50] LABS: TOT PROT 4.8 g/dl (6.4-8.2)
[2020-05-15 09:28] LABS: ANISOCYTOSIS 1+; MACROCYTOSIS 1+; PLATELET ESTIMATE DECREASED
[2020-05-15] MEDS: KCL 10 MEQ IVPB 10 MEQ/100 ML INFUS.BAG IVPB SCH ×3 (10:10→11:36)
[2020-05-15] MEDS: DEXAMETHASONE SOD PHOSPHATE 4 MG/1 ML VIAL IVPUSH SCH (11:17)
[2020-05-15] MEDS: MUPIROCIN 2% TOPICAL OINTMENT FOR DECOLONIZATION NS SCH ×2 (11:17→22:37)
[2020-05-15] MEDS: ENOXAPARIN NA (PORCINE) 100 MG/1 ML DISP.SYRIN SQ SCH (11:18)
[2020-05-15] MEDS: levETIRAcetam 500 MG/5 ML INJECTION VIAL IVPB SCH ×2 (11:18→22:38)
[2020-05-15] MEDS: PANTOPRAZOLE SODIUM 40 MG VIAL IVPUSH SCH (11:18)
[2020-05-15] MEDS: INSULIN SLIDING SCALE (NOVOLOG) 1 VIAL SQ SCH ×4 (12:00→22:38)
[2020-05-15 13:51] LABS: ARTERIAL BLD GAS O2 SATURATION 95.8 mmHg (95-98); ARTERIAL BLOOD GAS BASE EXCESS -4.2 mmol/L (-2-2); ARTERIAL BLOOD GAS PO2 91.9 mmHg (80-100)
[2020-05-15 13:53] LABS: ALLENS TEST POSITIVE; VENT MODE A/C; VENT RATE 30
[2020-05-15] MEDS: PROPOFOL 1,000,000 MCG/100 ML VIAL IVPB SCH ×2 (16:00→20:00)
[2020-05-15] MEDS: LACTATED RINGERS SOLUTION 1,000 ML/1,000 ML INFUS.BAG IV SCH ×2 (18:35→22:42)
[2020-05-15] MEDS ORDERED: MIDAZOLAM 100 MG/100 ML MG IVPB ONE ×2 (18:42→19:16)
[2020-05-15] MEDS: MIDAZOLAM 100 MG in SODIUM CHLORIDE 100 ML IVPB SCH ×2 (20:00→21:42)
[2020-05-15] MEDS: VASOPRESSIN 40 UNITS in SODIUM CHLORIDE 98 ML IVPB SCH (21:43)
[2020-05-15] MEDS: VECURONIUM BROMIDE 100 MG/100 ML BAG IVPB SCH ×2 (21:43→22:43)
[2020-05-15] MEDS: CHLORHEXIDINE GLUCONATE 4% CLEANSER FOR DECOLONIZATION TP SCH (22:38)
[2020-05-16] MEDS: MIDAZOLAM 100 MG in SODIUM CHLORIDE 100 ML IVPB SCH ×3 (02:30→21:00)
[2020-05-16] MEDS: NOREPINEPHRINE BITARTRATE 4,000 MCG in DEXTROSE 5%-WATER - 496 ML IV SCH ×2 (03:30→21:00)
[2020-05-16] MEDS: INSULIN SLIDING SCALE (NOVOLOG) 1 VIAL SQ SCH ×4 (06:16→22:57)
[2020-05-16] MEDS: LACTATED RINGERS SOLUTION 1,000 ML/1,000 ML INFUS.BAG IV SCH ×2 (06:23→21:00)
[2020-05-16 06:32] LABS: ARTERIAL BLOOD GAS BASE EXCESS -7.5 mmol/L (-2-2); ARTERIAL BLOOD GAS PO2 97.7 mmHg (80-100)
[2020-05-16 06:34] LABS: ALLENS TEST POSITIVE; VENT MODE A/C; VENT RATE 30
[2020-05-16 06:36] LABS: ARTERIAL BLOOD GAS pH 7.073 (7.350-7.450)
[2020-05-16 07:15] LABS: BASO % 0.1 % (0-2.0); EOS % 0.1 % (0-4.5); HEMATOCRIT 38.1 % (32.4-45.2); HEMOGLOBIN 12.5 GM/dL (10.7-15.3); LYMPH % 3.5 % (8-40); MCH 31.3 pg (25.7-33.7); MCHC 32.8 g/dl (32.0-36.0); MEAN CELL VOLUME 95.4 fl (80-96); MONO % 1.4 % (3.8-10.2); NEUT % 94.9 % (42.8-82.8); PLATELET COUNT 175 K/MM3 (134-434); RBC 3.99 M/mm3 (3.60-5.2); RDW 14.4 % (11.6-15.6); WHITE BLOOD COUNT 18.7 K/mm3 (4.0-10.0)
[2020-05-16 07:25] LABS: POTASSIUM 4.4 mmol/L (3.5-5.1)
[2020-05-16 07:27] LABS: ALBUMIN 1.8 g/dl (3.4-5.0); BLOOD UREA NITROGEN 47.6 mg/dL (7-18); MAGNESIUM 1.6 mg/dL (1.8-2.4)
[2020-05-16 07:30] LABS: CREATININE 3.1 mg/dL (0.55-1.3)
[2020-05-16 07:31] LABS: PHOSPHOROUS 6.3 mg/dL (2.5-4.9)
[2020-05-16 07:32] LABS: BILIRUBIN,TOTAL 0.4 mg/dL (0.2-1); TOT PROT 5.3 g/dl (6.4-8.2)
[2020-05-16] MEDS ORDERED: NOREPINEPHRINE BITARTRATE 4 MG/4 ML ML IV ONE (08:39)
[2020-05-16 09:10] LABS: CALCIUM 6.7 mg/dL (8.5-10.1)
[2020-05-16 09:21] LABS: ANISOCYTOSIS 1+; MACROCYTOSIS 0; PLATELET ESTIMATE NORMAL
[2020-05-16] MEDS ORDERED: PT OWN MED DRAWER 7, Y5N ONE (09:53)
[2020-05-16] MEDS: VASOPRESSIN 40 UNITS in SODIUM CHLORIDE 98 ML IVPB SCH (10:15)
[2020-05-16] MEDS: MUPIROCIN 2% TOPICAL OINTMENT FOR DECOLONIZATION NS SCH ×2 (10:16→21:50)
[2020-05-16] MEDS: levETIRAcetam 500 MG/5 ML INJECTION VIAL IVPB SCH ×2 (10:17→21:51)
[2020-05-16] MEDS: ENOXAPARIN NA (PORCINE) 100 MG/1 ML DISP.SYRIN SQ SCH (10:21)
[2020-05-16] MEDS: PANTOPRAZOLE SODIUM 40 MG VIAL IVPUSH SCH (10:21)
[2020-05-16] MEDS: DEXAMETHASONE SOD PHOSPHATE 4 MG/1 ML VIAL IVPUSH SCH (12:28)
[2020-05-16] MEDS ORDERED: DEXAMETHASONE SOD PHOSPHATE 10 MG/1 ML VIAL ONE (12:30)
[2020-05-16] MEDS: PROPOFOL 1,000,000 MCG/100 ML VIAL IVPB SCH ×3 (12:48→21:00)
[2020-05-16] MEDS: VECURONIUM BROMIDE 100 MG/100 ML BAG IVPB SCH ×2 (14:43→21:00)
[2020-05-16 15:44] VITALS: BMI 39.6
[2020-05-16] MEDS ORDERED: NOREPINEPHRINE BITARTRATE 8,000 MCG/500 ML BAG IVPB ONE ×2 (17:34→21:27)
[2020-05-16] MEDS ORDERED: MIDAZOLAM 100 MG/100 ML MG IVPB ONE (17:44)
[2020-05-16] MEDS: CHLORHEXIDINE GLUCONATE 4% CLEANSER FOR DECOLONIZATION TP SCH (21:51)
[2020-05-16] MEDS ORDERED: DEXAMETHASONE SOD PHOSPHATE 4 MG/1 ML VIAL IVPUSH ONE (22:00)
[2020-05-17] MEDS: MIDAZOLAM 100 MG in SODIUM CHLORIDE 100 ML IVPB SCH ×3 (02:30→21:00)
[2020-05-17] MEDS: NOREPINEPHRINE BITARTRATE 4,000 MCG in DEXTROSE 5%-WATER - 496 ML IV SCH ×2 (03:30→21:00)
[2020-05-17] MEDS ORDERED: NOREPINEPHRINE D5W PREMIX 16,000 MCG/500 ML BAG IVPB ONE (04:18)
[2020-05-17] MEDS: LACTATED RINGERS SOLUTION 1,000 ML/1,000 ML INFUS.BAG IV SCH (05:15)
[2020-05-17] MEDS ORDERED: MIDAZOLAM 100 MG/100 ML MG IVPB ONE ×2 (06:31→20:49)
[2020-05-17] MEDS: INSULIN SLIDING SCALE (NOVOLOG) 1 VIAL SQ SCH ×5 (06:55→21:37)
[2020-05-17 07:04] LABS: BASO % 0.2 % (0-2.0); HEMATOCRIT 38.2 % (32.4-45.2); HEMOGLOBIN 12.5 GM/dL (10.7-15.3); LYMPH % 2.6 % (8-40); MCH 30.8 pg (25.7-33.7); MCHC 32.6 g/dl (32.0-36.0); MEAN CELL VOLUME 94.4 fl (80-96); MEAN PLT VOLUME 9.7 fl (7.5-11.1); MONO % 1.6 % (3.8-10.2); NEUT % 95.6 % (42.8-82.8); PLATELET COUNT 152 K/MM3 (134-434); RBC 4.04 M/mm3 (3.60-5.2); WHITE BLOOD COUNT 24.3 K/mm3 (4.0-10.0)
[2020-05-17 07:24] LABS: POTASSIUM 4.5 mmol/L (3.5-5.1)
[2020-05-17 07:28] LABS: ALBUMIN 1.6 g/dl (3.4-5.0); BLOOD UREA NITROGEN 53.6 mg/dL (7-18); MAGNESIUM 1.3 mg/dL (1.8-2.4)
[2020-05-17 07:31] LABS: CREATININE 3.5 mg/dL (0.55-1.3); PHOSPHOROUS 4.4 mg/dL (2.5-4.9)
[2020-05-17 07:33] LABS: BILIRUBIN,TOTAL 0.5 mg/dL (0.2-1); TOT PROT 5.2 g/dl (6.4-8.2)
[2020-05-17 07:59] LABS: CALCIUM 6.2 mg/dL (8.5-10.1)
[2020-05-17] MEDS: SODIUM CHLORIDE 1,000 ML IV SCH ×2 (08:30→21:00)
[2020-05-17] MEDS ORDERED: MAGNESIUM 2GM/50ML STERILE WATER IVPB IVPB ONE (09:00)
[2020-05-17] MEDS: PROPOFOL 1,000,000 MCG/100 ML VIAL IVPB SCH ×2 (10:09→21:00)
[2020-05-17] MEDS: VECURONIUM BROMIDE 100 MG/100 ML BAG IVPB SCH ×2 (10:09→21:00)
[2020-05-17] MEDS: ENOXAPARIN NA (PORCINE) 100 MG/1 ML DISP.SYRIN SQ SCH (10:10)
[2020-05-17] MEDS: MUPIROCIN 2% TOPICAL OINTMENT FOR DECOLONIZATION NS SCH ×2 (10:10→21:08)
[2020-05-17] MEDS: levETIRAcetam 500 MG/5 ML INJECTION VIAL IVPB SCH ×2 (10:10→21:11)
[2020-05-17] MEDS: DEXAMETHASONE SOD PHOSPHATE 4 MG/1 ML VIAL IVPUSH SCH (10:10)
[2020-05-17] MEDS: VASOPRESSIN 40 UNITS in SODIUM CHLORIDE 98 ML IVPB SCH (10:10)
[2020-05-17] MEDS: PANTOPRAZOLE SODIUM 40 MG VIAL IVPUSH SCH (10:11)
[2020-05-17 10:58] LABS: ANISOCYTOSIS 0; MACROCYTOSIS 0; PLATELET ESTIMATE DECREASED; TARGET CELLS 1+; TOXIC GRANULATION 2+
[2020-05-17 13:32] LABS: EPI CELLS 18 /uL (0-25.1); HYALINE CASTS 14 /uL (0-3.1); URINE APPEARANCE TURBID; URINE BACTERIA 3161 /uL (0-1359); URINE BILIRUBIN NEGATIVE (NEGATIVE); URINE COLOR YELLOW; URINE GLUCOSE (UA) 1+ (NEGATIVE); URINE KETONE NEGATIVE (NEGATIVE); URINE LEUK ESTERASE 1+ (NEGATIVE); URINE NITRITE NEGATIVE (NEGATIVE); URINE PROTEIN 1+ (NEGATIVE); URINE UROBILINOGEN 0.2 mg/dL (0.2-1.0); URINE WBC 170 /uL (0-25.8)
[2020-05-17 13:46] LABS: URINE RBC 126.9 /uL (0-23.9); YEAST NON SEEN (NEGATIVE)
[2020-05-17] MEDS ORDERED: NOREPINEPHRINE BITARTRATE 8,000 MCG/500 ML BAG IVPB ONE (20:49)
[2020-05-17] MEDS: CHLORHEXIDINE GLUCONATE 4% CLEANSER FOR DECOLONIZATION TP SCH (21:08)
[2020-05-18] MEDS: INSULIN SLIDING SCALE (NOVOLOG) 1 VIAL SQ SCH ×4 (06:39→21:34)
[2020-05-18] MEDS: NOREPINEPHRINE BITARTRATE 4,000 MCG in DEXTROSE 5%-WATER - 496 ML IV SCH ×2 (07:10→21:53)
[2020-05-18 07:39] LABS: POTASSIUM 4.2 mmol/L (3.5-5.1)
[2020-05-18 07:41] LABS: BASO % 0.2 % (0-2.0); EOS % 0.2 % (0-4.5); HEMATOCRIT 35.6 % (32.4-45.2); HEMOGLOBIN 11.8 GM/dL (10.7-15.3); LYMPH % 1.9 % (8-40); MCH 31.1 pg (25.7-33.7); MCHC 33.1 g/dl (32.0-36.0); MEAN PLT VOLUME 10.5 fl (7.5-11.1); MONO % 0.8 % (3.8-10.2); NEUT % 96.9 % (42.8-82.8); PLATELET COUNT 128 K/MM3 (134-434); RBC 3.78 M/mm3 (3.60-5.2); RDW 14.1 % (11.6-15.6); WHITE BLOOD COUNT 18.6 K/mm3 (4.0-10.0)
[2020-05-18 07:43] LABS: ALBUMIN 1.3 g/dl (3.4-5.0); BLOOD UREA NITROGEN 56.2 mg/dL (7-18); MAGNESIUM 1.6 mg/dL (1.8-2.4)
[2020-05-18 07:46] LABS: CREATININE 3.8 mg/dL (0.55-1.3); PHOSPHOROUS 4.6 mg/dL (2.5-4.9)
[2020-05-18 07:50] LABS: BILIRUBIN,TOTAL 0.6 mg/dL (0.2-1); TOT PROT 4.2 g/dl (6.4-8.2)
[2020-05-18] MEDS ORDERED: MAGNESIUM SULF 50% (8.12 MEQ/2 ML-1 GM VIAL) IVPB ONE (09:14)
[2020-05-18] MEDS ORDERED: MIDAZOLAM 100 MG/100 ML MG IVPB ONE ×2 (10:33→19:21)
[2020-05-18] MEDS: levETIRAcetam 500 MG/5 ML INJECTION VIAL IVPB SCH ×2 (10:45→21:08)
[2020-05-18] MEDS: DEXAMETHASONE SOD PHOSPHATE 4 MG/1 ML VIAL IVPUSH SCH (10:46)
[2020-05-18] MEDS: MIDAZOLAM 100 MG in SODIUM CHLORIDE 100 ML IVPB SCH ×4 (10:48→21:52)
[2020-05-18] MEDS: PANTOPRAZOLE SODIUM 40 MG VIAL IVPUSH SCH (10:48)
[2020-05-18] MEDS: ENOXAPARIN NA (PORCINE) 100 MG/1 ML DISP.SYRIN SQ SCH (10:51)
[2020-05-18 10:54] LABS: CALCIUM 5.6 mg/dL (8.5-10.1)
[2020-05-18] MEDS: MUPIROCIN 2% TOPICAL OINTMENT FOR DECOLONIZATION NS SCH ×2 (11:04→21:08)
[2020-05-18] MEDS ORDERED: CALCIUM GLUCONATE 10% - 1,000 MG/10 ML VIAL IVPB ONE (12:14)
[2020-05-18] MEDS: VECURONIUM BROMIDE 100 MG/100 ML BAG IVPB SCH ×2 (13:07→20:00)
[2020-05-18] MEDS: PROPOFOL 1,000,000 MCG/100 ML VIAL IVPB SCH ×3 (13:07→22:00)
[2020-05-18] MEDS: SODIUM CHLORIDE 1,000 ML IV SCH ×2 (13:08→22:00)
[2020-05-18] MEDS: VASOPRESSIN 40 UNITS in SODIUM CHLORIDE 98 ML IVPB SCH ×2 (13:08→17:15)
[2020-05-18] MEDS: OCULAR LUBRICANT OPHTHALMIC OINTMENT 7 GM TUBE OU SCH ×2 (14:19→21:09)
[2020-05-18] MEDS ORDERED: NOREPINEPHRINE BITARTRATE 4 MG/4 ML ML IV ONE (14:29)
[2020-05-18 15:12] LABS: ANISOCYTOSIS 1+; MACROCYTOSIS 1+; PLATELET ESTIMATE DECREASED
[2020-05-18] MEDS: NOREPINEPHRINE BITARTRATE 16,000 MCG in DEXTROSE 5%-WATER - 484 ML IV SCH ×2 (16:58→19:00)
[2020-05-18] MEDS ORDERED: VASOPRESSIN 20 UNITS/ML VIAL IV ONE (17:11)
[2020-05-18] MEDS ORDERED: LACTATED RINGERS SOLUTION 1000 ML INFUS.BAG IV ONE (17:30)
[2020-05-18] MEDS: CHLORHEXIDINE GLUCONATE 4% CLEANSER FOR DECOLONIZATION TP SCH (21:08)
[2020-05-19] MEDS: VASOPRESSIN 40 UNITS in SODIUM CHLORIDE 98 ML IVPB SCH ×2 (01:00→09:37)
[2020-05-19] MEDS ORDERED: NOREPINEPHRINE BITARTRATE 4 MG/4 ML ML IV ONE (02:54)
[2020-05-19] MEDS: NOREPINEPHRINE BITARTRATE 16,000 MCG in DEXTROSE 5%-WATER - 484 ML IV SCH (03:30)
[2020-05-19] MEDS: MIDAZOLAM 100 MG in SODIUM CHLORIDE 100 ML IVPB SCH (06:18)
[2020-05-19] MEDS: INSULIN SLIDING SCALE (NOVOLOG) 1 VIAL SQ SCH (06:25)
[2020-05-19] MEDS ORDERED: VASOPRESSIN 20 UNITS/ML VIAL IV ONE (06:31)
[2020-05-19 07:45] LABS: POTASSIUM 5.2 mmol/L (3.5-5.1)
[2020-05-19 07:51] LABS: MAGNESIUM 2.1 mg/dL (1.8-2.4)
[2020-05-19 07:55] LABS: CREATININE 4.1 mg/dL (0.55-1.3)
[2020-05-19 08:05] LABS: BILIRUBIN,TOTAL 0.8 mg/dL (0.2-1); PHOSPHOROUS 6.1 mg/dL (2.5-4.9); TOT PROT 3.9 g/dl (6.4-8.2)
[2020-05-19 08:20] LABS: CALCIUM 6.1 mg/dL (8.5-10.1)
[2020-05-19] MEDS ORDERED: DEXTROSE 50%-WATER - 25 GM/50 ML VIAL IVPUSH ONE (08:30)
[2020-05-19] MEDS ORDERED: SODIUM BICARBONATE 8.4% 50 MEQ/50 ML DISP.SYRIN IVPUSH ONE (08:30)
[2020-05-19] MEDS ORDERED: INSULIN REGULAR HUMAN 100 UNITS/ML *VIAL IVPUSH ONE (08:30)
[2020-05-19] MEDS: levETIRAcetam 500 MG/5 ML INJECTION VIAL IVPB SCH (09:32)
[2020-05-19] MEDS: DEXAMETHASONE SOD PHOSPHATE 4 MG/1 ML VIAL IVPUSH SCH (09:32)
[2020-05-19] MEDS: PANTOPRAZOLE SODIUM 40 MG VIAL IVPUSH SCH (09:32)
[2020-05-19] MEDS: VECURONIUM BROMIDE 100 MG/100 ML BAG IVPB SCH (09:37)
[2020-05-19] MEDS: PROPOFOL 1,000,000 MCG/100 ML VIAL IVPB SCH (09:37)
[2020-05-19] MEDS: SODIUM CHLORIDE 1,000 ML IV SCH (09:37)
[2020-05-19] MEDS: OCULAR LUBRICANT OPHTHALMIC OINTMENT 7 GM TUBE OU SCH (09:38)
[2020-05-19 10:07] LABS: BASO % 0.1 % (0-2.0); EOS % 0.4 % (0-4.5); HEMATOCRIT 29.8 % (32.4-45.2); HEMOGLOBIN 9.5 GM/dL (10.7-15.3); LYMPH % 3.4 % (8-40); MCH 31.5 pg (25.7-33.7); MCHC 31.9 g/dl (32.0-36.0); MEAN CELL VOLUME 98.9 fl (80-96); MONO % 0.8 % (3.8-10.2); NEUT % 95.3 % (42.8-82.8); RBC 3.01 M/mm3 (3.60-5.2); RDW 14.7 % (11.6-15.6)
[2020-05-19 10:15] LABS: INR 1.24 (0.83-1.09); PROTHROMBIN TIME (PATIENT) 15.2 SEC (9.7-13.0)
[2020-05-19 10:43] LABS: POTASSIUM 5.5 mmol/L (3.5-5.1)
[2020-05-19 10:45] LABS: ALBUMIN 0.8 g/dl (3.4-5.0)
[2020-05-19 10:46] LABS: BLOOD UREA NITROGEN 59.7 mg/dL (7-18)
[2020-05-19 10:49] LABS: CREATININE 4.2 mg/dL (0.55-1.3)
[2020-05-19 10:50] LABS: BILIRUBIN,TOTAL 0.6 mg/dL (0.2-1); TOT PROT 3.2 g/dl (6.4-8.2)
[2020-05-19 10:57] LABS: CALCIUM 5.9 mg/dL (8.5-10.1)
[2020-05-19 11:01] LABS: WHITE BLOOD COUNT 5.3 K/mm3 (4.0-10.0)
[2020-05-19 11:03] LABS: PLATELET COUNT 23 K/MM3 (134-434)
[2020-05-19] MEDS: ENOXAPARIN NA (PORCINE) 100 MG/1 ML DISP.SYRIN SQ SCH (12:47)
[2020-05-19 13:31] VITALS: BP 126/88; PULSE 73; TEMP 99.1
[2020-05-19 13:40] LABS: ANISOCYTOSIS 1+; MACROCYTOSIS 0; PLATELET ESTIMATE DECREASED
[2020-05-19 13:52] LABS: CORRECTED WBC 2.28 K/mm3
== END 2020-05-19 13:35 | disposition expired | DRG 870 ==
LOC: JER 02:18 → JERBED 03:14 → JICU 06:26
PROVIDERS: ADMIT Internal Medicine Pulmonary Disease; ATTEND Internal Medicine Pulmonary Disease
PROC: 5A1955Z Respiratory Ventilation, Greater than 96 Consecutive Hours (ICD-10-PCS; principal; 2020-05-14)
PROC: XW13325 Transfusion of Convalescent Plasma (Nonautologous) into Peripheral Vein, Percutaneous Approach, New Technology Group 5 (ICD-10-PCS; 2020-05-14)
PROC: 06HY33Z Insertion of Infusion Device into Lower Vein, Percutaneous Approach (ICD-10-PCS; 2020-05-14)
PROC: 0DH67UZ Insertion of Feeding Device into Stomach, Via Natural or Artificial Opening (ICD-10-PCS; 2020-05-14)
PROC: 3E0G76Z Introduction of Nutritional Substance into Upper GI, Via Natural or Artificial Opening (ICD-10-PCS; 2020-05-14)
DX: A41.89 Other specified sepsis (principal); R65.21 Severe sepsis with septic shock; J12.82 Pneumonia due to coronavirus disease 2019; U07.1 COVID-19; J96.01 Acute respiratory failure with hypoxia; J96.02 Acute respiratory failure with hypercapnia; E87.2 Acidosis; N17.9 Acute kidney failure, unspecified; I24.8 Other forms of acute ischemic heart disease; I46.9 Cardiac arrest, cause unspecified; I25.10 Atherosclerotic heart disease of native coronary artery without angina pectoris; I45.10 Unspecified right bundle-branch block; K21.9 Gastro-esophageal reflux disease without esophagitis; E78.5 Hyperlipidemia, unspecified; E87.5 Hyperkalemia; R56.9 Unspecified convulsions
CPT/HCPCS: 36415; 36430; 36600; 70450-TC; 71045-TC-FY; 71250-TC; 74176-TC; 80053; 81003; 82248; 82550; 82553; 82565; 82728; 82803; 82962; 83036; 83605; 83615; 83735; 83930; 83935; 84100; 84300; 84484; 85025; 85379; 85384; 85610; 85730; 86140; 86850; 86900; 86901; 87040; 87086; 87324; 87426; 87449; 93005; 93010; 94002; 99291; J1100; P9017